=== PATIENT | female | born 2000 | race Caucasian/White ===

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

== ENCOUNTER 2023-02-13 11:46 | Emergency (ER) | payer OTHER, SELFPAY ==
[2023-02-13 11:56] VITALS: BP 139/80; PULSE 54; RESP 18; TEMP 36.5; O2SAT 100
--- NOTE | 2023-02-13 12:08 | ED.DENTAL ---
HPI - Dental/Oral General Chief complaint: Dental/Oral Stated complaint: Tooth pain Time Seen by Provider: 02/13/23 12:05 Source: patient, family (Mother) and RN notes reviewed Mode of arrival: ambulatory Limitations: no limitations History of Present Illness HPI Narrative: Patient presents today complaining of right upper wisdom tooth pain x2 days. Denies fever, shortness of breath, difficulty swallowing, or any additional symptoms she currently rates her pain 7/10 and has been using a heating pad, Tylenol, and ibuprofen with short-term relief. Patient has an appointment with a dentist in 2 days. Related Data Home Medications Medication Instructions Recorded Confirmed vit no.95-ferrous 1 tablet PO DAILY 03/27/21 04/18/21 fumarate 28 mg-folic acid 800 mcg tablet () Allergies Allergy/AdvReac Type Severity Reaction Status Date / Time No Known Allergies Allergy Mild Verified 02/13/23 11:55 Review of Systems Review of Systems: CONSTITUTIONAL: Denies body aches, fever, chills, or sweats. EYES: Denies visual changes, redness, or discharge. ENT: Denies rhinorrhea, congestion, sore throat, or otalgia.+ tooth pain CARDIOVASCULAR: Denies chest pain, palpitations, or edema. RESPIRATORY: Denies cough or dyspnea. GASTROINTESTINAL: Denies abdominal pain, nausea, vomiting, or diarrhea. GENITOURINARY: Denies dysuria or hematuria. SKIN: Denies rash, itching, or wounds. MUSCULOSKELETAL: Denies back pain, joint pain, or myalgia. NEUROLOGIC: Denies headache, numbness, tingling, or weakness. PSYCH: Denies depression or anxiety. [facility] Past Medical History Medical History Smoking Substance abuse Family History Family History Mother Asthma Social History Social History Smoking status: Former smoker Tobacco type: e-cigarettes/vaping Second hand tobacco smoke exposure: No Additional smoking assessment comments: Vaped Substance use: current Spiritual care concerns: No Comments At time of signature, I have reviewed and agree with nursing past medical, surgical, social and family history unless otherwise noted. Please see nursing chart for further information. There is no relevant family history pertinent to the presenting complaint Exam Narrative: GENERAL: Well-appearing, well-nourished, and in no acute distress. HEAD: Normocephalic, atraumatic. EYES: EOMI. No redness or drainage. Conjunctivae normal. ENT: Mucous membranes pink and moist. Pain to tooth 1. It is starting to erupt. Gingiva surrounding the tooth is slightly pink and swollen. No obvious periapical abscess. No facial swelling noted. NECK: Normal AROM. Supple. No lymphadenopathy. CHEST: No respiratory distress. EXTREMITIES: Normal range of motion. No edema. SKIN: Warm, dry, no rash. Capillary refill normal. Normal skin turgor. NEURO: No focal deficits. Alert and oriented x3. Gait steady. PSYCH: Normal affect. No signs of depression or anxiety. Course Course Level of Care: Express Care Visit Vital Signs Vital signs: Vital Signs Temperature 97.7 F 02/13/23 11:56 Pulse Rate 54 L 02/13/23 11:56 Respiratory Rate 18 02/13/23 11:56 Blood Pressure 139/80 02/13/23 11:56 Pulse Oximetry 100 02/13/23 11:56 Oxygen Delivery Room Air 02/13/23 11:56 Temperature 97.7 F 02/13/23 11:56 Pulse Rate 54 L 02/13/23 11:56 Respiratory Rate 18 02/13/23 11:56 Blood Pressure 139/80 02/13/23 11:56 Pulse Oximetry 100 02/13/23 11:56 Oxygen Delivery Room Air 02/13/23 11:56 Reviewed. Pt has been instructed to follow up with her PCP regarding her elevated blood pressure today. MDM - Dental/Oral MDM Narrative Medical decision making narrative: Will start patient on antibiotics for possible infection. She w
== END 2023-02-13 12:14 | disposition home or self-care (01) ==
PROVIDERS: Emergency Provider Nurse Practitioner
DX: K08.89 Other specified disorders of teeth and supporting structures (principal); F17.290 Nicotine dependence, other tobacco product, uncomplicated
CPT/HCPCS: 99213; G0463

== ENCOUNTER 2024-02-10 08:53 | Emergency (ER) | payer MEDICAID, SELFPAY ==
--- NOTE | ~2024-02-10 | CT_ITS ---
EXAMINATION: CT abdomen pelvis w con DATE: 02/10/2024 09:58 INDICATION: Abdominal pain. TECHNIQUE: Computed tomography (CT) of the abdomen and pelvis was performed with 100 mL Omnipaque 350 intravenous contrast. Automated exposure control and iterative reconstruction technique were employe d. The dose-length product was 236.72 mGy-cm. COMPARISON: Chest CT 06/08/2021 FINDINGS: The visualized portions of the lung bases are clear without pneumonia or pleural effusion. The heart size is normal. No pericardial effusion. The liver, gallbladder, spleen, pancreas, adrenal glands, and kidneys are normal. There are no dilated loops of bowel. The appendix is normal. No patho logically enlarged lymph nodes. There is no ascites. There are chronic bilateral L5 pars defects. The re is 3 mm anterolisthesis of L5 on S1. There is mild chronic height loss of multiple thoracic verteb ral bodies associated with Schmorl's nodes. There is mild bilateral sacroiliitis, which may be seen w ith ankylosing spondylitis or enteropathy-associated arthropathy. IMPRESSION: 1. No etiology for the patient's symptoms. Reviewed, dictated and finalized at location A.
[2024-02-10 08:54] VITALS: BP 155/88; PULSE 60; RESP 16; TEMP 36.4; O2SAT 100
[2024-02-10 09:02] VITALS: BP 143/88; PULSE 64; RESP 15; TEMP 36.6; O2SAT 100
[2024-02-10 09:13] LABS: Basophils Percent Auto 0.5 % (0.2-1.2); Eosinophils Absolute Auto 0.1 K/mm3 (0-0.3); Eosinophils Percent Auto 1.7 % (0-4.4); Hematocrit 41.2 % (37.0-47.0); Hemoglobin 14.3 g/dL (12.0-15.0); Immature Granulocyte Absolute 0.01 K/mm3 (0.00-0.031); Immature Granulocyte Percent A 0.1 % (0-0.5); Lymphocytes Absolute Auto 2.26 K/mm3 (0.9-3.2); Lymphocytes Percent Auto 29.8 % (18.3-44.2); Mean Corpuscular HGB Conc 34.7 g/dl (32-36); Mean Corpuscular Hemoglobin 31.6 pg (26-34); Mean Corpuscular Volume 91.2 fl (80-100); Mean Platelet Volume 8.8 fl (7.4-10.4); Monocytes Absolute Auto 0.6 K/mm3 (0.1-0.6); Monocytes Percent Auto 7.5 % (2.6-8.5); Neutrophils Absolute Auto 4.6 K/mm3 (1.3-6.7); Neutrophils Percent Auto 60.4 % (45.5-73.1); Platelet Count Result 288 k/mm3 (150-375); Red Blood Count 4.52 M/mm3 (4.2-5.4); Red Cell Distribution Width 12.5 % (11.5-14.5); White Blood Count 7.6 K/mm3 (4.5-10.0)
[2024-02-10 09:19] LABS: BEDSIDEPREGUCG Negative
[2024-02-10 09:19] LABS: Add Urine Microscopic? NO; Appearance Urine Clear (Clear); Bilirubin Urine Negative (Negative); Blood Urine Negative (Negative); Color Urine Yellow (Yellow); Glucose Urine UA Negative (Negative); Ketones Urine Negative (Negative); Leukocyte Esterase Ur Negative LEU/UL (Negative); Nitrate Urine Negative (Negative); Protein Urine Negative (Negative); Specific Grav Ur 1.016 (1.001-1.035); Urobilinogen Urine 0.2 mg/dL (<2.0)
[2024-02-10 09:24] LABS: Alanine Aminotransferase 20 U/L (6-35); Albumin Level 4.8 g/dL (3.5-5.1); Alkaline Phosphatase 62 U/L (38-126); Anion Gap 11 mmol/L (4-12); Aspartate Amino Transferase 27 U/L (14-36); Bilirubin,Total 0.5 mg/dL (0.2-1.3); Blood Urea Nitrogen 15 mg/dL (7-17); Calcium 9.9 mg/dL (8.4-10.2); Carbon Dioxide 26 mmol/L (22-30); Chloride 101 mmol/L (98-107); Estimated CRCL calculation 106 ml/min; Estimated Glomerular Filt Rate > 60; Glucose 94 mg/dL (65-110); Sodium 138 mmol/L (137-145)
--- NOTE | 2024-02-10 09:36 | ED.ABDPAIN ---
HPI - Abdominal Pain General Chief Complaint: Abdominal Pain Stated Complaint: abd pain Time Seen by Provider: 02/10/24 09:00 History of Present Illness HPI narrative: 23-year-old female presenting to the emergency department for evaluation for abdominal pain. Patient states that the mid and upper abdominal pain started last night and has persisted. Patient declined any medications for pain control. Patient denies any urinary symptoms, Related Data Home Medications Medication Instructions Recorded Confirmed vit no.95-ferrous 1 tablet PO DAILY 03/27/21 04/18/21 fumarate 28 mg-folic acid 800 mcg tablet () Allergies Allergy/AdvReac Type Severity Reaction Status Date / Time No Known Allergies Allergy Mild Verified 02/10/24 09:06 Review of Systems Review of Systems: All systems reviewed & are unremarkable except as noted in HPI and below PMFSH Past Medical History Medical History Smoking Substance abuse Family History Family History Mother Asthma Social History Social History Smoking status: Former smoker Tobacco type: e-cigarettes/vaping Second hand tobacco smoke exposure: No Additional smoking assessment comments: Vaped Substance use: current Spiritual care concerns: No Exam Narrative: APPEARANCE: Well appearing, no pain, no distress, well-nourished. HEAD: normocephalic, atraumatic. EYES: PERRLA/EOMI, conjunctivae clear. NOSE: Normal no drainage EARS:TMS clear with good light reflex. THROAT: Pharynx clear, no exudate. NECK: Supple. No adenopathy, no masses. RESPIRATORY: Airway patent, respirations nonlabored. Clear to auscultation bilaterally, no rales, rhonchi, wheezing. CARDIOVASCULAR: Regular rate and rhythm without murmurs rubs or gallops. ABDOMINAL: Right CVA tenderness, suprapubic tenderness and epigastric tenderness to palpation MUSCULOSKELETAL: Moves all extremities. Strength/ROM intact, No edema, No calf tenderness. NEURO: Alert. Cranial nerves II through XII intact. Grossly intact SKIN: Warm, dry. Normal Color Course Course Emergency Course: Patient reports she feels improved with treatment and was discharged to home. Vital Signs Vital signs: Vital Signs Temperature 97.6 F 02/10/24 08:54 Pulse Rate 60 02/10/24 08:54 Respiratory Rate 16 02/10/24 08:54 Blood Pressure 155/88 H 02/10/24 08:54 Pulse Oximetry 100 02/10/24 08:54 Oxygen Delivery Room Air 02/10/24 08:54 Temperature 97.8 F 02/10/24 10:51 Pulse Rate 61 02/10/24 10:51 Respiratory Rate 16 02/10/24 10:51 Blood Pressure 137/70 02/10/24 10:51 Pulse Oximetry 98 02/10/24 10:51 Oxygen Delivery Room Air 02/10/24 09:02 MDM - Abdominal Pain MDM Narrative Medical decision making narrative: 23-year-old female presenting to the emergency department for evaluation for abdominal pain. Patient is afebrile with no leukocytosis and a stable hemoglobin of 14.3. No abnormalities on her CMP including normal AST ALT alk-phos and lipase. Urine shows no underlying evidence of infection. Due to patient having reproducible pain CT scan was ordered and no acute etiology for the patient's symptoms so identified. Patient and family are updated the results of the workup. Patient was advised to take Tylenol and ibuprofen for pain control and to follow a bland diet for the next few days. Patient was also updated on reasons to return to the emergency department. Differential Diagnosis Differential diagnosis: Likely abdominal pain, acute appendicitis, calculus of kidney, diverticulitis, endometriosis, gastroenteritis, pancreatitis, small bowel obstruction and other Lab Data Attestation: I reviewed the patient's lab results. 02/10/24 09:07 02/10/24 09:07 Labs: L
[2024-02-10] MEDS: SODIUM CHLORIDE 0.9% IV 1,000 ML 999 ML IV CONT (09:39)
[2024-02-10 09:45] VITALS: BP 144/88; PULSE 64; RESP 15; O2SAT 65
[2024-02-10 10:24] LABS: Lipase 127 U/L (23-300)
[2024-02-10 10:27] VITALS: BP 134/74; PULSE 58; RESP 14; O2SAT 100
[2024-02-10 10:51] VITALS: BP 137/70; PULSE 61; RESP 16; TEMP 36.6; O2SAT 98
== END 2024-02-10 10:55 | disposition home or self-care (01) ==
PROVIDERS: Emergency Provider Emergency Medicine
DX: R10.84 Generalized abdominal pain (principal)
CPT/HCPCS: 36415; 74177; 80053; 81003; 81025; 83690; 85025; 96360; 99284; J7030; Q9967

== ENCOUNTER 2024-07-29 16:19 | Emergency (ER) | payer MEDICAID, SELFPAY ==
--- NOTE | ~2024-07-29 | XR_ITS ---
EXAM: XR ankle RT min 3V DATE: 07/29/2024 16:50 HISTORY: lateral ankle swelling/pain-rolled ankle . COMPARISON: 02/06/2017. FINDINGS: Normal mineralization. Small ossific fragments adjacent to the medial and lateral malleoli . No lytic or blastic lesion. Joint spaces are maintained. No erosion or periosteal change. Lateral s oft tissue swelling. Small joint effusion. IMPRESSION: Small acute versus chronic medial and lateral malleolus avulsion fractures. Reviewed, dictated and finalized at location K. ENGINE OPERATOR IMPRESSION: Small acute versus chronic medial and lateral malleolus avulsion fr actures.
[2024-07-29 16:37] VITALS: BP 133/58; PULSE 67; RESP 16; TEMP 37; O2SAT 98
--- NOTE | 2024-07-29 16:39 | ED.LOWEXIN ---
HPI - Extremity Injury (Lower) General Chief Complaint: Extremity Injury, Lower Stated Complaint: Injured Right Ankle Time Seen by Provider: 07/29/24 16:40 Source: patient Mode of arrival: ambulatory Limitations: no limitations History of Present Illness HPI Narrative: Roslyn is a 24-year-old female patient presenting to the clinic today with complaints of a right ankle injury. She reports she rolled yesterday when she slipped on some ice while at work. 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 Related Data Home Medications ?Medication ?Instructions ?Recorded ?Confirmed ?Last Taken ?Type docusate sodium 100 mg capsule mg PO 07/29/24 Unknown History Allergies Allergy/AdvReac Type Severity Reaction Status Date / Time No Known Allergies Allergy Mild Verified 07/29/24 16:47 Review of Systems Review of Systems: Pertinent positives per HPI. Patient denies any fever, chills, rash, headache, visual changes, dizziness, cough, shortness of breath, chest pain, palpitations, nausea, vomiting, diarrhea, constipation, abdominal pain, or any urinary issues. PMFSH Past Medical History Medical History Smoking Substance abuse Family History Family History Mother Asthma Social History Social History Smoking status: Former smoker Tobacco type: e-cigarettes/vaping Second hand tobacco smoke exposure: No Additional smoking assessment comments: Vaped Substance use: current Spiritual care concerns: No Comments At the time of my signature, I reviewed and agree with the nursing past medical, surgical, social, and family history. There is no relevant family history pertinent to the patient complaint. Exam Narrative: General: Well-developed, well nourished, in no apparent distress Head: Normocephalic, atraumatic. Cardio: Regular rate and rhythm, s1 and s2 normal, no murmur appreciated. Resp: Clear to auscultation bilaterally, no rhonchi, rales, wheezing or rubs. Musculoskeletal: No deformity, localized swelling to the right lateral ankle, tender to palpation, pain bearing weight, grossly normal range of motion, muscle strength strong and equal, peripheral pulse strong, no edema, no cyanosis, normal gait and station Course Course Emergency Course: Portions of this record may have been created with voice recognition software. Level of Care: Express Care Visit Vital Signs Vital signs: Vital Signs Temperature 37.0 C 07/29/24 16:37 Pulse Rate 67 07/29/24 16:37 Respiratory Rate 16 07/29/24 16:37 Blood Pressure 133/58 L 07/29/24 16:37 Pulse Oximetry 98 07/29/24 16:37 Temperature 37.0 C 07/29/24 16:37 Pulse Rate 67 07/29/24 16:37 Respiratory Rate 16 07/29/24 16:37 Blood Pressure 133/58 L 07/29/24 16:37 Pulse Oximetry 98 07/29/24 16:37 Vital signs reviewed MDM - Extremity Injury (Lower) MDM Narrative Medical decision making narrative: At the time of visit patient is resting comfortably on the exam table. Patient appears to be nontoxic. Diagnostics: X-ray of the right ankle was performed and shows acute versus chronic avulsion fractures of the medial and lateral malleolus. Plan: Will treat patient as though she has an acute avulsion fracture of the lateral medial malleolus. Will place her in a short-leg OCL with crutches and have her follow-up with Dr. Best this week. Supportive measures were discussed with the patient and they voiced understanding discharge instructions and agrees to treatment plan. Return precautions reviewed Differential Diagnosis Differential diagnosis: Likely ankle sprain and strain and ankle fracture Imaging Data Radiologist's impression: ITS Impressions Ankle X-Ray 07/29/24 16:59 IMPRESSION: Small acute versus chronic medial and lateral malleolus avulsion fractures. Discharge Plan Discharge Clinical Impression: Right ankle sprain Qualifiers: Encounter type: initial encounter Involved ligament of ankle: tibiofibular ligament Qualified Code(s): S93.431A - Sprain of tibiofibular ligament of right ankle, initial encounter Avulsion fracture of ankle Qualifiers: Encounter type: initial encounter Fracture type: closed Laterality: right Qualified Code(s): S82.891A - Other fracture of right lower leg, initial encounter for closed fracture Patient Disposition: Home, Self-Care Condition: Stable Instructions: Antibiotic Form, Ankle Sprain (ED), Avulsion Fracture (ED) Additional Instructions: Rest, ice, elevate, and wear short-leg OCL as discussed May use crutches as discussed Tylenol/motrin for pain as discussed. No running or sports until healed. Follow up with your PCP if symptoms persist more than 1 week. Patient Language: Maltese Prescriptions: No Action docusate sodium 100 mg capsule PO norethindrone (contraceptive) [Tasha] 0.35 mg tablet 0.35 mg PO DAILY Qty: 28 6RF Follow-up/Referrals: PHYSICIAN,BOARD HAMMER OPERATOR [Primary Care Provider] - Stef Best MD [Physician] - (Acute vs chronic avulsion fractures to the right medial and lateral malleolus. ) Stand Alone Forms: Work/School Release IP Time of Disposition: 17:12 Quality NIHSS Nursing Documentation ED NIHSS nursing documentation: reviewed/agree
== END 2024-07-29 17:25 | disposition home or self-care (01) ==
PROVIDERS: Emergency Provider Nurse Practitioner Family
DX: S93.401A Sprain of unspecified ligament of right ankle, initial encounter (principal); X50.9XXA Other and unspecified overexertion or strenuous movements or postures, initial encounter; S82.841A Displaced bimalleolar fracture of right lower leg, initial encounter for closed fracture; Y99.0 Civilian activity done for income or pay; Z87.891 Personal history of nicotine dependence
CPT/HCPCS: 29515; 73610; 99213; 99214; G0463